=== PATIENT | female | born 1960 | race Caucasian/White ===

== ENCOUNTER 2024-04-28 17:37 | Inpatient (IN) | payer MEDICAID, SELFPAY ==
[2024-04-28 18:00] VITALS: BMI 20.2
[2024-04-28] MEDS ORDERED: Senokot S 8.6-50 MG TAB PO PRN (18:37)
[2024-04-28] MEDS ORDERED: Calcium Carbonate 500 MG ChewTAB PO PRN (18:37)
[2024-04-28] MEDS ORDERED: Nicotine 14 MG PATCH TD PRN (19:30)
[2024-04-28 20:24] LABS: Troponin I 0.071 ng/mL (< 0.028)
[2024-04-28] MEDS ORDERED: Famotidine 20 MG TAB PO SCH (21:00)
[2024-04-28] MEDS: Cefepime 1 GM in Sodium Chloride 0.9% 100 ML IVPB SCH (21:45)
[2024-04-28] MEDS: Metoprolol Tartrate 25 MG TAB PO SCH (21:45)
[2024-04-28] MEDS: guaiFENesin ER 600 MG TAB PO SCH (21:45)
[2024-04-28] MEDS: Heparin 5,000 UNITS/ML VIAL SC SCH (21:45)
[2024-04-28] MEDS: methylPREDNISolone Sod Succ 40 MG VIAL IVP SCH ×2 (21:45→21:50)
[2024-04-28] MEDS: Magnesium 2 GM/50 ML(in water) 2 GM in Premix 1 BAG IVPB SCH (22:30)
[2024-04-28] MEDS: Ipratropium/Albuterol 3 ML NEB NEB SCH (23:25)
[2024-04-29 05:32] LABS: #Basophils 0.07 10x3/uL (0.0-0.2); #Monocytes 0.53 10x3/uL (0.0-1.1); #Neutrophils 7.91 10x3/uL (1.5-8.4); %Basophils 0.7 % (0.0-2.0); %Monocytes 5.5 % (0.0-10.0); %Neutrophils 81.3 % (40.0-75.0); Hematocrit 34.6 % (34.9-44.5); Hemoglobin 11.6 g/dL (12.0-15.5); Mean Corpuscular HGB CONC 33.5 g/dL (32.0-36.0); Mean Corpuscular Hemoglobin 28.4 pg (27.0-33.0); Mean Corpuscular Volume 84.6 fL (81.6-98.3); Mean Platelet Volume 8.6 fL (7.4-10.4); Platelet Count 366 10x3/uL (150-450); RBC Distribution Width 13.4 % (11.5-14.5); Red Blood Cell (RBC) Count 4.09 10x6/uL (3.90-5.03); White Blood Cell (WBC) Count 9.7 10x3/uL (3.5-10.5)
[2024-04-29 05:46] LABS: Troponin I 0.042 ng/mL (< 0.028)
[2024-04-29 05:53] LABS: ALT (SGPT) 13 U/L (8-55); AST (SGOT) 15 U/L (5-34); Albumin 3.1 g/dL (3.4-4.8); Alkaline Phosphatase 78 U/L (40-110); Anion Gap 15 mmol/L (10-20); BUN (Urea Nitrogen) 7 mg/dL (9.8-20.1); Bilirubin, Total Less than 0.2 mg/dL (0.2-1.2); Calc. Creatinine Clearance 73 mL/min (70-130); Calcium 8.9 mg/dL (7.8-10.44); Carbon Dioxide 22 mmol/L (23-31); Chloride 103 mmol/L (98-107); Estimated GFR 98; Globulin 4.1 g/dL (2.4-3.5); Glucose 147 mg/dL (80-115); Magnesium 2.7 mg/dL (1.6-2.6); Potassium 3.5 mmol/L (3.5-5.1); Protein, Total 7.2 g/dL (5.8-8.1); Sodium 136 mmol/L (136-145)
[2024-04-29] MEDS: Mometasone 200 MCG/Formoterol 5 MCG 60 PUFF INHALER INH SCH (07:30)
[2024-04-29] MEDS: Guaifenesin DM 100-10/5 ML UDCUP PO PRN (08:03)
[2024-04-29] MEDS: Sertraline 100 MG TAB PO SCH (08:56)
[2024-04-29] MEDS: Gabapentin 300 MG CAP PO SCH (08:56)
[2024-04-29] MEDS: Benzonatate 100 MG CAP PO SCH (08:56)
[2024-04-29] MEDS: Aspirin 81 mg Enteric Coated Tablet PO SCH (08:57)
[2024-04-29] MEDS: Pantoprazole DR 40 MG TAB PO SCH (09:45)
[2024-04-29] MEDS: guaiFENesin/DM ER PO SCH (09:45)
[2024-04-29] MEDS: Nicotine 21 MG PATCH TD PRN (13:26)
[2024-04-29] MEDS: Azithromycin 500 MG in Sodium Chloride 0.9% 250 ML 250 ML IVPB SCH (16:00)
[2024-04-29] MEDS: Montelukast Sodium 10 mg Tablet PO SCH (21:58)
[2024-04-29] MEDS: Multivit, Therapeutic 1 TAB PO SCH (21:59)
[2024-04-30] MEDS: Benzocaine/Menthol 1 LOZ LOZ PO PRN (00:39)
[2024-04-30 04:51] LABS: #Basophils 0.07 10x3/uL (0.0-0.2); #Eosinphils 0.01 10x3/uL (0.0-0.5); #Monocytes 1.39 10x3/uL (0.0-1.1); %Basophils 0.4 % (0.0-2.0); %Eosinophils 0.1 % (0.0-6.0); %Lymphocytes 6.7 % (18.0-47.0); %Monocytes 7.6 % (0.0-10.0); %Neutrophils 81.8 % (40.0-75.0); Hematocrit 33.3 % (34.9-44.5); Hemoglobin 11.1 g/dL (12.0-15.5); Mean Corpuscular HGB CONC 33.3 g/dL (32.0-36.0); Mean Corpuscular Hemoglobin 28.8 pg (27.0-33.0); Mean Corpuscular Volume 86.3 fL (81.6-98.3); Mean Platelet Volume 8.6 fL (7.4-10.4); Platelet Count 376 10x3/uL (150-450); RBC Distribution Width 13.6 % (11.5-14.5); Red Blood Cell (RBC) Count 3.86 10x6/uL (3.90-5.03); White Blood Cell (WBC) Count 18.3 10x3/uL (3.5-10.5)
[2024-04-30 05:05] LABS: Anion Gap 14 mmol/L (10-20); BUN (Urea Nitrogen) 15 mg/dL (9.8-20.1); Calc. Creatinine Clearance 68 mL/min (70-130); Calcium 8.8 mg/dL (7.8-10.44); Carbon Dioxide 21 mmol/L (23-31); Chloride 104 mmol/L (98-107); Estimated GFR 97; Glucose 155 mg/dL (80-115); Potassium 3.5 mmol/L (3.5-5.1); Sodium 135 mmol/L (136-145)
[2024-04-30] MEDS: Sertraline 100 MG TAB PO SCH (08:46)
[2024-04-30] MEDS: Acetaminophen 325 MG TAB PO SCH (10:51)
[2024-04-30] MEDS: Potassium Bicarbonate/Cit Ac 20 MEQ TAB PO SCH (10:52)
[2024-04-30 11:23] VITALS: BMI 20.2
[2024-04-30] MEDS: Ipratropium/Albuterol 3 ML NEB NEB PRN (12:25)
[2024-04-30] MEDS: hydrALAZINE 25 MG TAB PO PRN (16:24)
[2024-04-30] MEDS: hydrOXYzine Pamoate 25 mg Capsule PO PRN (19:02)
[2024-04-30] MEDS: Acetaminophen 325 MG TAB PO PRN (21:10)
[2024-05-01 05:07] LABS: Anion Gap 16 mmol/L (10-20); BUN (Urea Nitrogen) 15 mg/dL (9.8-20.1); Calc. Creatinine Clearance 60 mL/min (70-130); Calcium 9.5 mg/dL (7.8-10.44); Carbon Dioxide 22 mmol/L (23-31); Chloride 99 mmol/L (98-107); Estimated GFR 87; Glucose 198 mg/dL (80-115); Potassium 3.8 mmol/L (3.5-5.1); Sodium 133 mmol/L (136-145)
[2024-05-01] MEDS ORDERED: Sodium Chloride 0.65% Nasal 44 ML BOT EA NARE PRN (12:42)
[2024-05-01] MEDS: cloNIDine 0.1 MG TAB PO PRN (15:20)
[2024-05-01] MEDS: Potassium Bicarbonate/Cit Ac 20 MEQ TAB PO SCH (16:31)
[2024-05-01 16:37] VITALS: BP 158/93; TEMP 98.6
== END 2024-05-01 20:00 | DRG 189 ==
LOC: CSHTELE 17:37
PROVIDERS: ADMIT Internal Medicine; ATTEND Internal Medicine
DX: J96.21 Acute and chronic respiratory failure with hypoxia (principal); J44.1 Chronic obstructive pulmonary disease with (acute) exacerbation; F41.9 Anxiety disorder, unspecified; I25.10 Atherosclerotic heart disease of native coronary artery without angina pectoris; K21.9 Gastro-esophageal reflux disease without esophagitis; I25.2 Old myocardial infarction; Z95.5 Presence of coronary angioplasty implant and graft; Z99.81 Dependence on supplemental oxygen; Z79.899 Other long term (current) drug therapy; Z88.5 Allergy status to narcotic agent; Z88.2 Allergy status to sulfonamides; Z90.710 Acquired absence of both cervix and uterus; Z98.890 Other specified postprocedural states; Z82.49 Family history of ischemic heart disease and other diseases of the circulatory system; Z83.3 Family history of diabetes mellitus; Z87.891 Personal history of nicotine dependence
CPT/HCPCS: 36415; 36416; 80048; 80053; 83735; 84484; 85025; 87070; 87205; 87633; 94640; 94760; 94762; J0456; J0692; J1644; J2919; J3475; J7050; J7620; Q0177